=== PATIENT | male | born 1960 | race Caucasian/White ===

== ENCOUNTER 2016-10-20 07:18 | Emergency (ER) | payer OTHER ==
--- NOTE | 2016-10-20 07:42 | ED ---
Lower Extremity Injury HPI - General Stated Complaint: ankle pain Time Seen by Provider: 10/20/16 07:33 Source: patient, RN notes reviewed Mode of arrival: wheelchair Limitations: no limitations - History of Present Illness Initial Comments: This a 56-year-old male with a prior history of arthroscopic surgery on both knees back in the early who presents with complaints of 2 days her right knee pain after twisting it on ice while walking 2 days ago. He complains of pain 5/10 in severity most of the lateral aspect of the right knee radiating down somewhat. He denies any other injuries. Denies any fevers chills sweats or other symptoms he has been using a cane to walk. He states he can benefit 90 but after 90 it hurts. MD Complaint: knee injury - Related Data Home Medications Medication Instructions Recorded Confirmed Cetirizine HCl [Zyrtec] 10 mg PO HS 10/20/16 10/20/16 Fluticasone Nasal [place] [Flonase 2 spr EA NOSTRIL DAILY 10/20/16 10/20/16 Nasal [place]] Glucosamine Sulfate 1,500 mg PO DAILY 10/20/16 10/20/16 Naproxen Sodium [Aleve] 220 mg PO Q12HR PRN 10/20/16 10/20/16 Allergies Allergy/AdvReac Type Severity Reaction Status Date / Time No Known Allergies Allergy Verified 10/20/16 07:40 Review of Systems ROS Statement: Those systems with pertinent positive or pertinent negative responses have been documented in the HPI. ROS Other: All systems not noted in ROS Statement are negative. Past Medical History Additional Past Medical History / Comment(s): hearing loss in left ear, bowel obstruction History of Any Multi-Drug Resistant Organisms: None Reported Past Surgical History: Orthopedic Surgery Additional Past Surgical History / Comment(s): americo knee Past Psychological History: No Psychological Hx Reported Smoking Status: Former smoker Past Alcohol Use History: None Reported Past Drug Use History: None Reported General Exam - General Exam Comments Initial Comments: This is a well-developed well-nourished awake alert oriented times 3 female Limitations: no limitations General appearance: alert, in no apparent distress Head exam: Present: atraumatic, normocephalic, normal inspection Neck exam: Present: normal inspection. Absent: tenderness, meningismus, lymphadenopathy Extremities exam: Present: normal inspection, tenderness, normal capillary refill, other (Examination of the knee reveals very minimal tenderness over the medial or lateral last was in the negative drawer sign no ballottement no tenderness above or below the knee to palpation. On varus and valgus stress no overt tenderness.). Absent: pedal edema, joint swelling, calf tenderness Course Vital Signs 10/20/16 07:33 Temperature 97.2 F L Pulse Rate 86 Respiratory 16 Rate Blood Pressure 142/80 O2 Sat by Pulse 98 Oximetry Medical Decision Making - Medical Decision Making I did discuss the findings with the patient and the patient will be discharged with follow-up with his doctor. Did recommend nonweightbearing for several days. 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 We given the next 3 days. He is to follow-up with his orthopedic surgeon he is return when necessary he will continue using his Aleve and a cane which ER he has. - Radiology Data Radiology results: report reviewed (I did review the imaging and report or is evidence of marked degenerative disease to the right knee no fractures are seen however.), image reviewed Disposition Clinical Impression: Right knee sprain Disposition: HOME SELF-CARE Condition: Good Instructions: Knee Sprain (ED) Referrals: Joaquin Nunez MD [Primary Care Provider] - 1-2 days Mauricio Urias MD [REFERRING] - 1-2 days
--- NOTE | 2016-10-20 08:01 | XR ---
EXAMINATION TYPE: XR knee 4V RT DATE OF EXAM: 10/20/2016 7:53 AM CLINICAL HISTORY: Slip and fall injury a few days ago with pain. TECHNIQUE: Three views of the right knee are obtained. Fourth sunrise view was acquired. COMPARISON: None. FINDINGS: There is no acute fracture/dislocation evident in right knee. There is advanced spurring a nd joint space loss patellofemoral compartment. There is advanced spurring and moderate joint space l oss medial tibiofemoral compartment. There is mild to moderate joint space loss and spurring lateral tibiofemoral compartment. Increased density suprapatellar bursa is suspicious for moderate to large j oint effusion. There is spur from superior patella at distal quadriceps tendon attachment. Patellar a rticulation is within normal limits on sunrise view. IMPRESSION: There is no acute fracture or dislocation in the right knee. Moderate to advanced tricom partment degenerative changes are noted.
[2016-10-20 08:47] VITALS: BP 133/77; PULSE 77; RESP 18; TEMP 98
== END 2016-10-20 08:47 | disposition home or self-care (01) ==
LOC: EC 07:18
DX: S83.91XA Sprain of unspecified site of right knee, initial encounter (principal); W18.49XA Other slipping, tripping and stumbling without falling, initial encounter; X50.9XXA Other and unspecified overexertion or strenuous movements or postures, initial encounter; Y93.01 Activity, walking, marching and hiking; Z87.891 Personal history of nicotine dependence; Z79.51 Long term (current) use of inhaled steroids
CPT/HCPCS: 99283